=== PATIENT | female | born 1940 | race Caucasian/White ===

== ENCOUNTER → 2018-10-09 | Day surgery (SDC) | payer MEDICARE, OTHER ==
[~2018-10-09] MED LIST: Heparin 1,000 UNITS/ML VIAL ONE
--- NOTE | 2018-10-09 11:56 | SPC ---
[facility]P LINE PICC [facility] >5 History: [Need for long-term IV access] Comparison: None. Findings: Patient was brought to the specials suite. Questions were answered. Informed consent was ob tained. Timeout performed. The patient's left arm was prepped and draped in normal sterile fashion. Using ultrasound guidance th e left basilic vein was accessed. Using fluoroscopic guidance, over a wire and through a peel-away sheath a 46 cm PICC was placed with tip at the inferior SVC. The patient tolerated the procedure well without complication. Impression: Technically successful ultrasound and fluoroscopic guided PICC line placement. Fluoroscopy time: 0.6 minutes
== END ==
LOC: SPEC 08:14
PROVIDERS: ATTEND Internal Medicine Infectious Disease
PROC: 02HV33Z Insertion of Infusion Device into Superior Vena Cava, Percutaneous Approach (ICD-10-PCS; principal; 2018-10-09)
DX: T84.54XA Infection and inflammatory reaction due to internal left knee prosthesis, initial encounter (principal); L08.9 Local infection of the skin and subcutaneous tissue, unspecified; Z88.0 Allergy status to penicillin; Z88.1 Allergy status to other antibiotic agents; Z88.2 Allergy status to sulfonamides; Z88.8 Allergy status to other drugs, medicaments and biological substances
CPT/HCPCS: 36569; 80053; 85027; 85652; 86140; C1751; 36415; J1644